=== PATIENT | female | born 1965 | race Caucasian/White ===

== ENCOUNTER 2018-03-06 09:19 | Inpatient (IN) | payer OTHER ==
[~2018-03-06] VITALS: Ht 154.9 cm; Wt 81.9 kg
[2018-03-06] MEDS ORDERED: HYDROmorphone 2 MG/ML, 1ML ONE ×2 (09:57→11:37)
[2018-03-06] MEDS ORDERED: METOCLOPRAMIDE 5 MG/ML, 2ML ONE (09:57)
[2018-03-06] MEDS ORDERED: DICYCLOMINE 10 MG/ML, 2ML ONE (09:58)
[2018-03-06] MEDS ORDERED: SODIUM CHLORIDE 0.9% 1,000ML IVBOLUS ONE (10:00)
[2018-03-06] MEDS ORDERED: DICYCLOMINE 10 MG/ML, 2ML IM ONE (10:00)
[2018-03-06] MEDS ORDERED: METOCLOPRAMIDE 5 MG/ML, 2ML IVPush ONE (10:00)
[2018-03-06] MEDS: HYDROmorphone 2 MG/ML, 1ML IVPush PRN ×5 (10:02→22:05)
[2018-03-06 10:23] LABS: ALANINE AMINOTRANSFERASE 33 U/L (12-78); ALBUMIN 4.2 g/dL (3.4-5.0); ANION GAP 15 mmol/L (5-15); CALCIUM 9.2 mg/dL (8.5-10.1); CHLORIDE 94 mmol/L (98-107); CREATININE 0.94 mg/dL (0.55-1.02)
[2018-03-06 10:25] LABS: ALKALINE PHOSPHATASE 165 U/L (45-117); BILIRUBIN,TOTAL 1.5 mg/dL (0.2-1.0); TOTAL PROTEIN 8.3 g/dL (6.4-8.2)
[2018-03-06 10:35] LABS: BASOPHILS # (AUTO) 0.05 x10^3/uL (0-0.1); BASOPHILS % (AUTO) 1 % (0-1); EOSINOPHILS # (AUTO) 0.03 x10^3/uL (0-0.4); EOSINOPHILS % (AUTO) 0 % (1-7); LYMPHOCYTES # (AUTO) 1.45 x10^3/uL (1-3.4); LYMPHOCYTES % (AUTO) 13 % (22-44); MD SCAN; MEAN CORPUSCULAR HEMOGLOBIN 32.4 pg (27.0-34.8); MEAN CORPUSCULAR VOLUME 92.5 fL (80-100); MEAN PLATELET VOLUME 7.8 fL (7.4-10.4); MONOCYTES # (AUTO) 0.48 x10^3/uL (0.2-0.8); MONOCYTES % (AUTO) 4 % (2-9); NEUTROPHILS # (AUTO) 9.08 x10^3/uL (1.8-6.8); NEUTROPHILS % (AUTO) 82 % (42-75); PLATELET COUNT 163 x10^3/uL (130-400); RED BLOOD COUNT 5.46 x10^6/uL (3.82-5.3); RED CELL DISTRIBUTION WIDTH 12.4 % (9.6-15.2)
[2018-03-06] MEDS ORDERED: ENALAPRILAT 1.25 MG/ML, 2ML IV ONE (11:00)
[2018-03-06] MEDS ORDERED: ENALAPRILAT 1.25 MG/ML, 2ML ONE (11:06)
[2018-03-06] MEDS ORDERED: hydrALAzine 20 MG/ML, 1ML ONE ×2 (11:45→12:41)
[2018-03-06] MEDS ORDERED: hydrALAzine 20 MG/ML, 1ML IV ONE ×2 (12:00→12:30)
[2018-03-06] MEDS ORDERED: POTASSIUM CHLORIDE 40 MEQ in SODIUM CHLORIDE 0.9% 500 ML IV ONE (12:00)
[2018-03-06] MEDS ORDERED: OMNIPAQUE 350 MG/ML, 100ML BOTTLE ONE ×2 (12:11)
[2018-03-06 13:17] LABS: LDL/HDL RATIO 1.3 (0.5-3.0)
[2018-03-06] MEDS ORDERED: MAGNESIUM SULFATE PMX 2GM/50ML 50 ML IV ONE (14:30)
[2018-03-06] MEDS ORDERED: ONDANSETRON ODT 4 MG ONE (15:36)
[2018-03-06] MEDS: POTASSIUM CHLORIDE 20 MEQ in LACTATED RINGERS 1,000 ML IV SCH ×2 (16:05→23:25)
[2018-03-06] MEDS: ONDANSETRON 2MG/ML, 2ML IVPush PRN (16:05)
[2018-03-06] MEDS: ENOXAPARIN 40 MG/0.4 ML SQ SCH (16:19)
[2018-03-06] MEDS: hydrALAzine 20 MG/ML, 1ML IVPush PRN ×2 (17:36→23:25)
[2018-03-06 17:38] VITALS: BP 174/114
[2018-03-06 19:41] VITALS: BP 194/130
[2018-03-06] MEDS: ENALAPRILAT 1.25 MG/ML, 2ML IVPush PRN ×2 (20:18→20:49)
[2018-03-06] MEDS ORDERED: LORazepam 0.5MG TABLET PO ONE (20:30)
[2018-03-06 20:44] VITALS: BP 196/135
[2018-03-06 21:32] VITALS: BP 193/130
[2018-03-06 23:16] VITALS: BP 191/102
[2018-03-07] VITALS (35 sets, daily range): BP systolic 127–196; BP diastolic 70–138
[2018-03-07] MEDS: ONDANSETRON 2MG/ML, 2ML IVPush PRN ×3 (00:08→22:20)
[2018-03-07] MEDS: HYDROmorphone 2 MG/ML, 1ML IVPush PRN ×7 (01:24→22:06)
[2018-03-07] MEDS: hydrALAzine 20 MG/ML, 1ML IVPush PRN ×2 (04:10→08:47)
[2018-03-07] MEDS: POTASSIUM CHLORIDE 20 MEQ in LACTATED RINGERS 1,000 ML IV SCH ×4 (04:34→21:26)
[2018-03-07 05:34] LABS: BASOPHILS # (AUTO) 0.02 x10^3/uL (0-0.1); BASOPHILS % (AUTO) 0 % (0-1); EOSINOPHILS # (AUTO) 0.05 x10^3/uL (0-0.4); EOSINOPHILS % (AUTO) 1 % (1-7); LYMPHOCYTES # (AUTO) 1.36 x10^3/uL (1-3.4); LYMPHOCYTES % (AUTO) 14 % (22-44); MD NO; MEAN CORPUSCULAR HEMOGLOBIN 32.8 pg (27.0-34.8); MEAN CORPUSCULAR HGB CONC 35.1 g/dL (32.4-35.8); MEAN CORPUSCULAR VOLUME 93.4 fL (80-100); MEAN PLATELET VOLUME 7.8 fL (7.4-10.4); MONOCYTES # (AUTO) 0.51 x10^3/uL (0.2-0.8); MONOCYTES % (AUTO) 5 % (2-9); NEUTROPHILS # (AUTO) 8.18 x10^3/uL (1.8-6.8); NEUTROPHILS % (AUTO) 81 % (42-75); PLATELET COUNT 155 x10^3/uL (130-400); RED BLOOD COUNT 4.73 x10^6/uL (3.82-5.3); RED CELL DISTRIBUTION WIDTH 12.9 % (9.6-15.2)
[2018-03-07 05:35] LABS: CALCIUM 8.4 mg/dL (8.5-10.1); CHLORIDE 100 mmol/L (98-107)
[2018-03-07 05:41] LABS: ALANINE AMINOTRANSFERASE 26 U/L (12-78); ALBUMIN 3.3 g/dL (3.4-5.0); ALKALINE PHOSPHATASE 152 U/L (45-117); ANION GAP 11 mmol/L (5-15); BILIRUBIN,TOTAL 0.8 mg/dL (0.2-1.0); CREATININE 0.61 mg/dL (0.55-1.02); TOTAL PROTEIN 6.7 g/dL (6.4-8.2)
[2018-03-07] MEDS: ENALAPRILAT 1.25 MG/ML, 2ML IVPush PRN ×3 (09:44→19:23)
[2018-03-07] MEDS ORDERED: KETOROLAC 30 MG/1 ML ONE (10:19)
[2018-03-07] MEDS: KETOROLAC 30 MG/1 ML IVPush PRN ×2 (10:23→16:26)
[2018-03-07] MEDS ORDERED: KETOROLAC 30 MG/1 ML IVPush SCH (10:30)
[2018-03-07 14:34] LABS: AMPHETAMINE SCREEN, URINE Negative (Negative); BARBITURATE SCREEN, URINE Negative (Negative); BENZODIAZEPINE SCREEN, URINE Negative (Negative); CANNABINOID SCREEN, URINE Negative (Negative); COCAINE SCREEN, URINE Negative (Negative); METHADONE SCREEN, URINE Negative (Negative)
[2018-03-07 14:35] LABS: OPIATE SCREEN, URINE Positive (Negative)
[2018-03-07] MEDS: ENOXAPARIN 40 MG/0.4 ML SQ SCH (16:14)
[2018-03-07] MEDS: hydrALAzine 20 MG/ML, 1ML IV PRN ×2 (16:26→22:06)
[2018-03-08] VITALS (11 sets, daily range): BP systolic 136–200; BP diastolic 64–124
[2018-03-08] MEDS: HYDROmorphone 2 MG/ML, 1ML IVPush PRN ×7 (00:41→21:08)
[2018-03-08] MEDS: POTASSIUM CHLORIDE 20 MEQ in LACTATED RINGERS 1,000 ML IV SCH ×5 (02:23→22:35)
[2018-03-08] MEDS: KETOROLAC 30 MG/1 ML IVPush PRN (02:24)
[2018-03-08] MEDS: ENALAPRILAT 1.25 MG/ML, 2ML IVPush PRN (02:24)
[2018-03-08 04:18] LABS: CLOSTRIDIUM DIFFICILE ANTIGEN POSITIVE; CLOSTRIDIUM DIFFICILE TOXIN NEGATIVE (Negative)
[2018-03-08] MEDS: hydrALAzine 20 MG/ML, 1ML IV PRN ×4 (05:32→23:44)
[2018-03-08 06:17] LABS: BASOPHILS # (AUTO) 0.02 x10^3/uL (0-0.1); BASOPHILS % (AUTO) 0 % (0-1); EOSINOPHILS # (AUTO) 0.14 x10^3/uL (0-0.4); EOSINOPHILS % (AUTO) 2 % (1-7); LYMPHOCYTES % (AUTO) 17 % (22-44); MD NO; MEAN CORPUSCULAR HEMOGLOBIN 32.5 pg (27.0-34.8); MEAN CORPUSCULAR HGB CONC 34.5 g/dL (32.4-35.8); MEAN CORPUSCULAR VOLUME 94.3 fL (80-100); MEAN PLATELET VOLUME 7.7 fL (7.4-10.4); MONOCYTES # (AUTO) 0.37 x10^3/uL (0.2-0.8); MONOCYTES % (AUTO) 6 % (2-9); NEUTROPHILS # (AUTO) 4.42 x10^3/uL (1.8-6.8); NEUTROPHILS % (AUTO) 74 % (42-75); PLATELET COUNT 116 x10^3/uL (130-400); RED BLOOD COUNT 4.17 x10^6/uL (3.82-5.3); RED CELL DISTRIBUTION WIDTH 12.8 % (9.6-15.2)
[2018-03-08 06:19] LABS: CHLORIDE 106 mmol/L (98-107)
[2018-03-08 06:28] LABS: ALANINE AMINOTRANSFERASE 24 U/L (12-78); ALBUMIN 2.8 g/dL (3.4-5.0); ALKALINE PHOSPHATASE 151 U/L (45-117); ANION GAP 7 mmol/L (5-15); BILIRUBIN,TOTAL 0.6 mg/dL (0.2-1.0); CALCIUM 8.2 mg/dL (8.5-10.1); TOTAL PROTEIN 5.9 g/dL (6.4-8.2)
[2018-03-08] MEDS ORDERED: LORazepam 2 MG/ML, 1ML ONE (11:08)
[2018-03-08] MEDS ORDERED: LORazepam 2 MG/ML, 1ML IVPush PRN (11:30)
[2018-03-08] MEDS: ENOXAPARIN 40 MG/0.4 ML SQ SCH (17:06)
[2018-03-08] MEDS ORDERED: ONDANSETRON ODT 4 MG PO PRN (22:00)
[2018-03-09] VITALS (14 sets, daily range): BP systolic 163–215; BP diastolic 84–139
[2018-03-09] MEDS ORDERED: DEXTROSE 5% 1,000 ML IV SCH (01:00)
[2018-03-09] MEDS: ENALAPRILAT 1.25 MG/ML, 2ML IVPush PRN ×4 (03:20→22:42)
[2018-03-09] MEDS: POTASSIUM CHLORIDE 20 MEQ in LACTATED RINGERS 1,000 ML IV SCH ×4 (03:23→19:14)
[2018-03-09] MEDS: HYDROmorphone 2 MG/ML, 1ML IVPush PRN ×3 (03:41→09:06)
[2018-03-09 05:54] LABS: BASOPHILS # (AUTO) 0.01 x10^3/uL (0-0.1); BASOPHILS % (AUTO) 0 % (0-1); EOSINOPHILS # (AUTO) 0.23 x10^3/uL (0-0.4); EOSINOPHILS % (AUTO) 3 % (1-7); LYMPHOCYTES # (AUTO) 1.09 x10^3/uL (1-3.4); LYMPHOCYTES % (AUTO) 16 % (22-44); MD NO; MEAN CORPUSCULAR HEMOGLOBIN 33.2 pg (27.0-34.8); MEAN CORPUSCULAR HGB CONC 35.2 g/dL (32.4-35.8); MEAN CORPUSCULAR VOLUME 94.4 fL (80-100); MEAN PLATELET VOLUME 7.8 fL (7.4-10.4); MONOCYTES % (AUTO) 7 % (2-9); NEUTROPHILS # (AUTO) 4.89 x10^3/uL (1.8-6.8); NEUTROPHILS % (AUTO) 73 % (42-75); PLATELET COUNT 134 x10^3/uL (130-400); RED BLOOD COUNT 4.19 x10^6/uL (3.82-5.3); RED CELL DISTRIBUTION WIDTH 12.9 % (9.6-15.2)
[2018-03-09 06:02] LABS: CHLORIDE 97 mmol/L (98-107)
[2018-03-09 06:15] LABS: ALANINE AMINOTRANSFERASE 30 U/L (12-78); ALKALINE PHOSPHATASE 180 U/L (45-117); ANION GAP 11 mmol/L (5-15); BILIRUBIN,TOTAL 1.2 mg/dL (0.2-1.0); CALCIUM 8.7 mg/dL (8.5-10.1); CREATININE 0.54 mg/dL (0.55-1.02); TOTAL PROTEIN 6.4 g/dL (6.4-8.2)
[2018-03-09] MEDS: hydrALAzine 20 MG/ML, 1ML IV PRN ×2 (08:17→21:09)
[2018-03-09] MEDS: KETOROLAC 30 MG/1 ML IVPush PRN ×2 (11:59→22:19)
[2018-03-09] MEDS ORDERED: MAALOX/HYOSCYAMINE/LIDOCAINE 45 ML BTL PO ONE (12:00)
[2018-03-09] MEDS ORDERED: hydrALAzine 20 MG/ML, 1ML IV SCH (13:30)
[2018-03-09] MEDS ORDERED: LISINOPRIL 20 MG TABLET PO ONE (15:00)
[2018-03-09] MEDS: SUCRALFATE 1 GM/10 ML UDC PO SCH ×2 (17:10→19:57)
[2018-03-09] MEDS: PANTOPROZOLE 40MG TABLET PO SCH (17:10)
[2018-03-09] MEDS: ENOXAPARIN 40 MG/0.4 ML SQ SCH (17:11)
[2018-03-09] MEDS: AMLODIPINE 5 MG TABLET PO SCH (19:57)
[2018-03-10] VITALS (9 sets, daily range): BP systolic 153–204; BP diastolic 86–120
[2018-03-10] MEDS: DIAZEPAM 5 MG/ML, 2ML IV PRN ×2 (00:20→21:16)
[2018-03-10] MEDS: hydrALAzine 20 MG/ML, 1ML IV PRN ×3 (01:17→15:24)
[2018-03-10] MEDS: HYDROmorphone 2 MG/ML, 1ML IVPush PRN ×2 (02:06→07:59)
[2018-03-10] MEDS ORDERED: POTASSIUM CHLORIDE 20 MEQ in LACTATED RINGERS 1,000 ML IV SCH ×2 (04:00→12:53)
[2018-03-10 05:36] LABS: BASOPHILS # (AUTO) 0.01 x10^3/uL (0-0.1); BASOPHILS % (AUTO) 0 % (0-1); EOSINOPHILS % (AUTO) 2 % (1-7); LYMPHOCYTES # (AUTO) 0.81 x10^3/uL (1-3.4); LYMPHOCYTES % (AUTO) 14 % (22-44); MD NO; MEAN CORPUSCULAR HEMOGLOBIN 32.6 pg (27.0-34.8); MEAN CORPUSCULAR HGB CONC 34.9 g/dL (32.4-35.8); MEAN CORPUSCULAR VOLUME 93.4 fL (80-100); MEAN PLATELET VOLUME 7.5 fL (7.4-10.4); MONOCYTES # (AUTO) 0.33 x10^3/uL (0.2-0.8); MONOCYTES % (AUTO) 6 % (2-9); NEUTROPHILS # (AUTO) 4.68 x10^3/uL (1.8-6.8); NEUTROPHILS % (AUTO) 79 % (42-75); PLATELET COUNT 159 x10^3/uL (130-400); RED BLOOD COUNT 4.55 x10^6/uL (3.82-5.3); RED CELL DISTRIBUTION WIDTH 12.3 % (9.6-15.2)
[2018-03-10 05:48] LABS: ANION GAP 11 mmol/L (5-15); CALCIUM 8.7 mg/dL (8.5-10.1); CHLORIDE 98 mmol/L (98-107)
[2018-03-10 05:50] LABS: CREATININE 0.52 mg/dL (0.55-1.02)
[2018-03-10] MEDS: SUCRALFATE 1 GM/10 ML UDC PO SCH ×4 (07:59→20:36)
[2018-03-10] MEDS: PANTOPROZOLE 40MG TABLET PO SCH (07:59)
[2018-03-10] MEDS: AMLODIPINE 5 MG TABLET PO SCH ×2 (07:59→20:36)
[2018-03-10] MEDS: LISINOPRIL 20 MG TABLET PO SCH ×2 (11:22→20:36)
[2018-03-10] MEDS: KETOROLAC 30 MG/1 ML IVPush PRN ×2 (11:47→18:01)
[2018-03-10] MEDS: ENALAPRILAT 1.25 MG/ML, 2ML IVPush PRN (11:47)
[2018-03-10] MEDS ORDERED: MAALOX/HYOSCYAMINE/LIDOCAINE 45 ML BTL PO ONE (13:30)
[2018-03-10] MEDS ORDERED: FUROSEMIDE 20 MG/2 ML ONE (15:16)
[2018-03-10] MEDS ORDERED: FUROSEMIDE 20 MG/2 ML IV ONE (16:00)
[2018-03-10] MEDS: ENOXAPARIN 40 MG/0.4 ML SQ SCH (17:59)
[2018-03-11] VITALS (9 sets, daily range): BP systolic 132–183; BP diastolic 84–121
[2018-03-11] MEDS: KETOROLAC 30 MG/1 ML IVPush PRN ×4 (00:10→19:07)
[2018-03-11] MEDS: hydrALAzine 20 MG/ML, 1ML IV PRN ×2 (00:53→11:23)
[2018-03-11] MEDS ORDERED: HYDROmorphone 2 MG/ML, 1ML IVPush ONE (02:30)
[2018-03-11 05:23] LABS: BASOPHILS # (AUTO) 0.01 x10^3/uL (0-0.1); BASOPHILS % (AUTO) 0 % (0-1); EOSINOPHILS # (AUTO) 0.15 x10^3/uL (0-0.4); EOSINOPHILS % (AUTO) 3 % (1-7); LYMPHOCYTES # (AUTO) 1.32 x10^3/uL (1-3.4); LYMPHOCYTES % (AUTO) 28 % (22-44); MD NO; MEAN CORPUSCULAR HEMOGLOBIN 32.5 pg (27.0-34.8); MEAN CORPUSCULAR HGB CONC 34.7 g/dL (32.4-35.8); MEAN CORPUSCULAR VOLUME 93.6 fL (80-100); MEAN PLATELET VOLUME 7.6 fL (7.4-10.4); MONOCYTES # (AUTO) 0.48 x10^3/uL (0.2-0.8); MONOCYTES % (AUTO) 10 % (2-9); NEUTROPHILS # (AUTO) 2.84 x10^3/uL (1.8-6.8); NEUTROPHILS % (AUTO) 59 % (42-75); PLATELET COUNT 173 x10^3/uL (130-400); RED BLOOD COUNT 4.44 x10^6/uL (3.82-5.3); RED CELL DISTRIBUTION WIDTH 12.8 % (9.6-15.2)
[2018-03-11 05:29] LABS: ALBUMIN 3.2 g/dL (3.4-5.0); ANION GAP 8 mmol/L (5-15); CALCIUM 8.5 mg/dL (8.5-10.1); CHLORIDE 98 mmol/L (98-107)
[2018-03-11 05:32] LABS: ALANINE AMINOTRANSFERASE 42 U/L (12-78); ALKALINE PHOSPHATASE 137 U/L (45-117); BILIRUBIN,TOTAL 0.7 mg/dL (0.2-1.0); C-REACTIVE PROTEIN, QUANT 0.77 mg/dL (0.02-0.49); CREATININE 0.63 mg/dL (0.55-1.02); TOTAL PROTEIN 6.5 g/dL (6.4-8.2)
[2018-03-11] MEDS: SUCRALFATE 1 GM/10 ML UDC PO SCH ×4 (08:07→20:22)
[2018-03-11] MEDS: AMLODIPINE 5 MG TABLET PO SCH ×2 (08:08→20:22)
[2018-03-11] MEDS: LISINOPRIL 20 MG TABLET PO SCH ×2 (08:08→20:22)
[2018-03-11] MEDS: PANTOPROZOLE 40MG TABLET PO SCH (08:08)
[2018-03-11] MEDS ORDERED: FUROSEMIDE 20 MG/2 ML IV ONE (11:30)
[2018-03-11] MEDS ORDERED: POTASSIUM CHLORIDE 20 MEQ TAB.ER.PRT PO ONE (11:30)
[2018-03-11] MEDS: ENOXAPARIN 40 MG/0.4 ML SQ SCH (16:11)
[2018-03-12] VITALS (8 sets, daily range): BP systolic 138–173; BP diastolic 82–124
[2018-03-12] MEDS: ENALAPRILAT 1.25 MG/ML, 2ML IVPush PRN ×2 (00:45→01:12)
[2018-03-12] MEDS: KETOROLAC 30 MG/1 ML IVPush PRN ×2 (01:11→08:19)
[2018-03-12 06:02] LABS: ANION GAP 9 mmol/L (5-15); CALCIUM 8.3 mg/dL (8.5-10.1); CHLORIDE 103 mmol/L (98-107); CREATININE 0.83 mg/dL (0.55-1.02)
[2018-03-12] MEDS ORDERED: hydrALAzine 20 MG/ML, 1ML IV PRN (07:30)
[2018-03-12] MEDS: PANTOPROZOLE 40MG TABLET PO SCH (07:30)
[2018-03-12] MEDS: SUCRALFATE 1 GM/10 ML UDC PO SCH ×4 (08:15→20:38)
[2018-03-12] MEDS: LISINOPRIL 20 MG TABLET PO SCH ×2 (08:16→20:38)
[2018-03-12] MEDS: AMLODIPINE 5 MG TABLET PO SCH ×2 (08:16→20:38)
[2018-03-12] MEDS ORDERED: IBUPROFEN 200 MG TABLET PO PRN (14:00)
[2018-03-12] MEDS: ENOXAPARIN 40 MG/0.4 ML SQ SCH (17:51)
[2018-03-13 02:45] VITALS: BP 132/85
[2018-03-13 07:13] VITALS: BP 150/87
[2018-03-13] MEDS: PANTOPROZOLE 40MG TABLET PO SCH (07:48)
[2018-03-13] MEDS: SUCRALFATE 1 GM/10 ML UDC PO SCH ×3 (07:48→16:00)
[2018-03-13] MEDS: LISINOPRIL 20 MG TABLET PO SCH (09:46)
[2018-03-13] MEDS: AMLODIPINE 5 MG TABLET PO SCH (09:46)
[2018-03-13] MEDS ORDERED: CLON0.1T12 PO (11:08)
[2018-03-13] MEDS ORDERED: SUCR1ORA5 PO (11:08)
[2018-03-13] MEDS ORDERED: LISI-170 PO (11:08)
[2018-03-13] MEDS ORDERED: AMLO5TAB7 PO (11:08)
[2018-03-13] MEDS ORDERED: PANT40TA5 PO (11:08)
[2018-03-13] MEDS ORDERED: HYDR-3343 PO (11:08)
[2018-03-13 12:12] VITALS: BP 122/72
[2018-03-13] MEDS: ENOXAPARIN 40 MG/0.4 ML SQ SCH (16:00)
== END 2018-03-13 17:31 | disposition home or self-care (01) | DRG 640 ==
LOC: ED 10:15 → EDIP 12:26 → 3NE 14:08 → 5SO 23:14 → 4WST 03-11 09:06
PROVIDERS: ADMIT Internal Medicine; ATTEND Internal Medicine
DX: E87.1 Hypo-osmolality and hyponatremia (principal); K85.90 Acute pancreatitis without necrosis or infection, unspecified; I16.0 Hypertensive urgency; D75.1 Secondary polycythemia; E66.9 Obesity, unspecified; E86.9 Volume depletion, unspecified; E87.6 Hypokalemia; I11.9 Hypertensive heart disease without heart failure; K21.9 Gastro-esophageal reflux disease without esophagitis; K43.9 Ventral hernia without obstruction or gangrene; K57.30 Diverticulosis of large intestine without perforation or abscess without bleeding; N83.202 Unspecified ovarian cyst, left side; Z82.49 Family history of ischemic heart disease and other diseases of the circulatory system; Z87.891 Personal history of nicotine dependence; Z87.892 Personal history of anaphylaxis; Z90.49 Acquired absence of other specified parts of digestive tract; Z68.34 Body mass index [BMI] 34.0-34.9, adult
CPT/HCPCS: 36415; 71045; 74177; 74181; 80048; 80053; 80061; 80307; 83605; 83690; 83735; 85025; 86140; 87324; 87493; 93306; 93975; 96372; 96374; 96375; 96376; 99285; G0378; J1170; J1650; J1885; J2405; J3360; J3480; J7070; Q0162; Q9967; J0360; J0500; J1940; J2060; J2765; J3475; J7030; J7040; J7120

== ENCOUNTER → 2018-09-06 | Outpatient (CLI) | payer OTHER ==
[~2018-09-06] MED LIST: AMLO-150 PO; CLON0.1T12 PO; HYDR-3343 PO; LISI-170 PO; PANT40TA5 PO; SUCR1ORA5 PO
[2018-09-06 12:39] LABS: BASOPHILS # (AUTO) 0.01 x10^3/uL (0-0.1); BASOPHILS % (AUTO) 0 % (0-1); EOSINOPHILS # (AUTO) 0.06 x10^3/uL (0-0.4); EOSINOPHILS % (AUTO) 1 % (1-7); LYMPHOCYTES # (AUTO) 0.85 x10^3/uL (1-3.4); LYMPHOCYTES % (AUTO) 16 % (22-44); MD NO; MEAN CORPUSCULAR HEMOGLOBIN 33.4 pg (27.0-34.8); MEAN CORPUSCULAR HGB CONC 34.9 g/dL (32.4-35.8); MEAN CORPUSCULAR VOLUME 95.9 fL (80-100); MEAN PLATELET VOLUME 7.6 fL (7.4-10.4); MONOCYTES # (AUTO) 0.35 x10^3/uL (0.2-0.8); MONOCYTES % (AUTO) 7 % (2-9); NEUTROPHILS # (AUTO) 4.02 x10^3/uL (1.8-6.8); NEUTROPHILS % (AUTO) 76 % (42-75); PLATELET COUNT 183 x10^3/uL (130-400); RED BLOOD COUNT 4.33 x10^6/uL (3.82-5.3); RED CELL DISTRIBUTION WIDTH 13.4 % (9.6-15.2)
[2018-09-06 12:59] LABS: HEMOGLOBIN A1C 4.9 % (4.2-6.3)
[2018-09-06 13:16] LABS: ALBUMIN 3.8 g/dL (3.4-5.0); ANION GAP 9 mmol/L (5-15); CALCIUM 8.9 mg/dL (8.5-10.1); CHLORIDE 103 mmol/L (98-107)
[2018-09-06 13:27] LABS: ALANINE AMINOTRANSFERASE 54 U/L (12-78); ALKALINE PHOSPHATASE 185 U/L (45-117); BILIRUBIN,TOTAL 1.1 mg/dL (0.2-1.0); CHOL/HDL RATIO 2.9; CHOLESTEROL, TOTAL 191 mg/dL (140-239); CREATININE 0.63 mg/dL (0.55-1.02); HDL CHOL % 34 % (28-40); HDL CHOLESTEROL (DIRECT) 65 mg/dL (40-60); LDL CHOLESTEROL,CALCULATED 97 mg/dL (54-169); LDL/HDL RATIO 1.5 (0.5-3.0); T4 (THYROXINE) 11.9 mcg/dL (4.8-13.9); TOTAL PROTEIN 7.1 g/dL (6.4-8.2); TRIGLYCERIDES 144 mg/dL (50-200); VLDL CHOLESTEROL 29 mg/dL (0-25)
== END | disposition home or self-care (01) ==
LOC: CFH 10:31
PROVIDERS: ATTEND Nurse Practitioner Family
DX: Z13.6 Encounter for screening for cardiovascular disorders (principal); I10 Essential (primary) hypertension; Z87.891 Personal history of nicotine dependence
CPT/HCPCS: 36415; 80053; 80061; 83036; 84436; 84443; 84481; 85025

== ENCOUNTER 2018-10-29 04:03 | Inpatient (IN) | payer OTHER ==
[~2018-10-29] VITALS: Ht 154.9 cm; Wt 77.2 kg
--- NOTE | 2018-10-29 04:23 | NUR ---
FIRST CONTACT WITH PT. PT STATES THAT SHE'S FELT UNWELL SINCE TUESDAY. PT HAVING ABDOMINAL PAIN THAT SHE SAYS RANGES FROM EPIGASTRIC TO LOWER ABDOMEN, AND WHICH RADIATES UP HER LEFT SIDE UNDER HER BREAST. PT WITH HISTORY OF PANCREATITIS AND SAYS SHE FEELS LIKE IT'S THAT AGAIN. BP/SPO2 MONITORS IN PLACE. CALL LIGHT WITHIN REACH. PT'S AOX4. RESPS EVEN AND UNLABORED.
--- NOTE | 2018-10-29 04:34 | NUR ---
PT PROVIDED URINE CUP. PT AMB TO BR WITH STEADY GAIT.
[2018-10-29 04:54] LABS: CULTURE INDICATED? NO; MICROSCOPIC AUTO
[2018-10-29 04:54] LABS: BASOPHILS # (AUTO) 0.01 x10^3/uL (0-0.1); BASOPHILS % (AUTO) 0 % (0-1); EOSINOPHILS # (AUTO) 0.08 x10^3/uL (0-0.4); EOSINOPHILS % (AUTO) 1 % (1-7); LYMPHOCYTES # (AUTO) 1.11 x10^3/uL (1-3.4); LYMPHOCYTES % (AUTO) 15 % (22-44); MD NO; MEAN CORPUSCULAR HEMOGLOBIN 33.2 pg (27.0-34.8); MEAN CORPUSCULAR HGB CONC 34.4 g/dL (32.4-35.8); MEAN CORPUSCULAR VOLUME 96.6 fL (80-100); MEAN PLATELET VOLUME 7.8 fL (7.4-10.4); MONOCYTES # (AUTO) 0.42 x10^3/uL (0.2-0.8); MONOCYTES % (AUTO) 6 % (2-9); NEUTROPHILS % (AUTO) 78 % (42-75); PLATELET COUNT 207 x10^3/uL (130-400); RED CELL DISTRIBUTION WIDTH 12.8 % (9.6-15.2)
[2018-10-29] MEDS ORDERED: MAALOX/HYOSCYAMINE/LIDOCAINE 45 ML BTL PO ONE (05:00)
[2018-10-29] MEDS ORDERED: MAALOX/HYOSCYAMINE/LIDOCAINE 45 ML BTL ONE (05:05)
[2018-10-29 05:07] LABS: ALANINE AMINOTRANSFERASE 47 U/L (12-78); ALBUMIN 4.4 g/dL (3.4-5.0); ANION GAP 10 mmol/L (5-15); CALCIUM 9.2 mg/dL (8.5-10.1); CHLORIDE 99 mmol/L (98-107); CREATININE 1.35 mg/dL (0.55-1.02)
[2018-10-29 05:09] LABS: ALKALINE PHOSPHATASE 180 U/L (45-117); BILIRUBIN,TOTAL 1.3 mg/dL (0.2-1.0); TOTAL PROTEIN 8.5 g/dL (6.4-8.2)
--- NOTE | 2018-10-29 05:12 | NUR ---
PT MEDICATED PER EMAR. PT TOLERATED WELL.
[2018-10-29] MEDS ORDERED: SODIUM CHLORIDE 0.9% 1,000 ML IV ONE (05:39)
[2018-10-29] MEDS ORDERED: HYDROmorphone 2 MG/ML, 1ML ONE (05:49)
[2018-10-29] MEDS ORDERED: ONDANSETRON 2MG/ML, 2ML ONE (05:49)
[2018-10-29] MEDS ORDERED: SODIUM CHLORIDE FLUSH 10ML SYR IVF ONE (06:00)
[2018-10-29] MEDS ORDERED: ONDANSETRON 2MG/ML, 2ML IVPush ONE (06:00)
[2018-10-29] MEDS ORDERED: HYDROmorphone 2 MG/ML, 1ML IVPush PRN (06:00)
--- NOTE | 2018-10-29 06:41 | NUR ---
PT IN CT NOW.
[2018-10-29] MEDS ORDERED: OMNIPAQUE 350 MG/ML, 100ML BOTTLE ONE (06:47)
--- NOTE | 2018-10-29 06:47 | NUR ---
PT BACK TO ROOM FROM CT.
--- NOTE | 2018-10-29 06:55 | NUR ---
REPORT GIVEN TO CARLOS BENSON
--- NOTE | 2018-10-29 07:18 | NUR ---
PT RESTING ON [employer]. ALL CONCERNS ADRESSED. PT STATES PAIN IS WELL CONTROLLED AT THIS TIME. CALL LIGHT IN REACH.
--- NOTE | 2018-10-29 08:21 | NUR ---
PT AMBULATORY TO BATHROOM WITH STEADY GAIT.
[2018-10-29] MEDS ORDERED: SODIUM CHLORIDE FLUSH 10ML SYR IVF PRN (08:30)
--- NOTE | 2018-10-29 09:25 | NUR ---
REPORT TO OLLIE GARCIA.
[2018-10-29 09:55] VITALS: BP 170/99
[2018-10-29] MEDS ORDERED: ENALAPRILAT 1.25 MG/ML, 2ML IV PRN (11:30)
[2018-10-29] MEDS ORDERED: morphine SULFATE 10 MG/ML, 1ML IVPush PRN (11:30)
[2018-10-29] MEDS: PANTOPRAZOLE 40 MG IV IVPush SCH (11:42)
[2018-10-29] MEDS ORDERED: HYDROmorphone 1 MG/ML, 1ML INJ IV PRN (12:00)
[2018-10-29] MEDS: ENOXAPARIN 40 MG/0.4 ML SQ SCH (12:00)
[2018-10-29 12:14] VITALS: BP 137/89
[2018-10-29] MEDS: SODIUM CHLORIDE 0.45% 1,000 ML IV SCH ×2 (12:41→19:13)
[2018-10-29] MEDS: ONDANSETRON 2MG/ML, 2ML IVPush PRN ×2 (12:42→19:13)
[2018-10-29 15:33] VITALS: BP 173/98
[2018-10-29] MEDS: hydrALAzine 20 MG/ML, 1ML IV SCH ×2 (15:35→21:59)
[2018-10-29] MEDS: HYDROmorphone 2 MG/ML, 1ML IV PRN ×2 (19:13→22:23)
[2018-10-29 20:14] VITALS: BP 147/94
[2018-10-30 01:13] VITALS: BP 151/91
[2018-10-30] MEDS: HYDROmorphone 2 MG/ML, 1ML IV PRN ×5 (01:32→21:31)
[2018-10-30] MEDS: PROMETHAZINE 25 MG/ML, 1ML IM PRN ×2 (01:36→08:09)
[2018-10-30] MEDS: SODIUM CHLORIDE 0.45% 1,000 ML IV SCH ×2 (01:42→08:18)
[2018-10-30 04:16] VITALS: BP 170/101
[2018-10-30] MEDS: hydrALAzine 20 MG/ML, 1ML IV SCH ×2 (04:19→08:04)
[2018-10-30] MEDS: ONDANSETRON 2MG/ML, 2ML IVPush PRN (05:03)
[2018-10-30 05:26] LABS: ALBUMIN 3.7 g/dL (3.4-5.0); ANION GAP 10 mmol/L (5-15); CALCIUM 8.8 mg/dL (8.5-10.1); CHLORIDE 100 mmol/L (98-107)
[2018-10-30 05:31] LABS: ALANINE AMINOTRANSFERASE 54 U/L (12-78); ALKALINE PHOSPHATASE 250 U/L (45-117); BILIRUBIN,TOTAL 1.2 mg/dL (0.2-1.0); CREATININE 0.86 mg/dL (0.55-1.02)
[2018-10-30] MEDS: PANTOPRAZOLE 40 MG IV IVPush SCH (08:04)
[2018-10-30] MEDS ORDERED: MAGNESIUM SULFATE PMX 2GM/50ML 50 ML IV ONE (10:00)
[2018-10-30] MEDS: SODIUM CHLORIDE 0.9% 1,000 ML IV SCH ×2 (10:38→21:13)
[2018-10-30] MEDS: OXYcodone IR 5MG TABLET PO PRN ×2 (10:59→18:17)
[2018-10-30 11:01] VITALS: BP 143/87
[2018-10-30] MEDS: ENOXAPARIN 40 MG/0.4 ML SQ SCH (12:00)
[2018-10-30 15:24] VITALS: BP 125/78
[2018-10-30 19:41] VITALS: BP 163/96
[2018-10-30] MEDS: AMLODIPINE 5 MG TABLET PO SCH (21:13)
[2018-10-30] MEDS: LISINOPRIL 20 MG TABLET PO SCH (21:13)
[2018-10-31] MEDS: HYDROmorphone 2 MG/ML, 1ML IV PRN ×7 (00:39→20:59)
[2018-10-31 02:09] VITALS: BP 120/77
[2018-10-31] MEDS: SODIUM CHLORIDE 0.9% 1,000 ML IV SCH ×3 (03:49→20:03)
[2018-10-31 05:42] LABS: ALBUMIN 3.6 g/dL (3.4-5.0); ANION GAP 7 mmol/L (5-15); CALCIUM 8.4 mg/dL (8.5-10.1); CHLORIDE 101 mmol/L (98-107)
[2018-10-31 05:46] LABS: ALANINE AMINOTRANSFERASE 63 U/L (12-78); ALKALINE PHOSPHATASE 215 U/L (45-117); CREATININE 0.82 mg/dL (0.55-1.02); TOTAL PROTEIN 7.1 g/dL (6.4-8.2)
[2018-10-31 07:30] VITALS: BP 185/108
[2018-10-31] MEDS: PANTOPRAZOLE 40 MG IV IVPush SCH (07:35)
[2018-10-31] MEDS: LISINOPRIL 20 MG TABLET PO SCH ×2 (07:35→20:03)
[2018-10-31] MEDS: AMLODIPINE 5 MG TABLET PO SCH ×2 (07:35→20:03)
[2018-10-31] MEDS: ENOXAPARIN 40 MG/0.4 ML SQ SCH ×2 (12:00→14:19)
[2018-10-31 13:30] VITALS: BP 149/82
[2018-10-31] MEDS: ACETAMINOPHEN 325 MG TABLET PO PRN (17:45)
[2018-10-31 21:17] VITALS: BP 169/83
[2018-10-31 23:59] VITALS: BP 156/85
[2018-11-01] MEDS: HYDROmorphone 2 MG/ML, 1ML IV PRN ×3 (00:11→06:16)
[2018-11-01] MEDS: ACETAMINOPHEN 325 MG TABLET PO PRN ×3 (03:11→16:36)
[2018-11-01] MEDS: SODIUM CHLORIDE 0.9% 1,000 ML IV SCH (03:46)
[2018-11-01 05:35] LABS: ANION GAP 8 mmol/L (5-15); CHLORIDE 104 mmol/L (98-107)
[2018-11-01 05:38] LABS: CREATININE 0.64 mg/dL (0.55-1.02)
[2018-11-01 07:28] VITALS: BP 169/97
[2018-11-01] MEDS ORDERED: MAGNESIUM SULFATE PMX 2GM/50ML 50 ML IV ONE (09:00)
[2018-11-01] MEDS: AMLODIPINE 5 MG TABLET PO SCH ×2 (10:56→20:54)
[2018-11-01] MEDS: LISINOPRIL 20 MG TABLET PO SCH ×2 (10:57→20:55)
[2018-11-01] MEDS: OXYcodone IR 5MG TABLET PO PRN ×2 (11:19→16:36)
[2018-11-01] MEDS ORDERED: MAALOX/HYOSCYAMINE/LIDOCAINE 45 ML BTL PO ONE (11:30)
[2018-11-01 14:18] VITALS: BP 104/67
[2018-11-01 18:54] VITALS: BP 135/85
[2018-11-01] MEDS: CALCIUM CARBONATE 500 MG TAB.CHEW PO PRN (21:00)
[2018-11-02] MEDS: ACETAMINOPHEN 325 MG TABLET PO PRN ×2 (01:23→10:36)
[2018-11-02] MEDS: OXYcodone IR 5MG TABLET PO PRN (01:23)
[2018-11-02 01:57] VITALS: BP 129/83
[2018-11-02 07:56] VITALS: BP 137/82
[2018-11-02] MEDS: LISINOPRIL 20 MG TABLET PO SCH (10:37)
[2018-11-02] MEDS: CALCIUM CARBONATE 500 MG TAB.CHEW PO PRN (10:37)
[2018-11-02] MEDS: AMLODIPINE 5 MG TABLET PO SCH (10:37)
[2018-11-02] MEDS ORDERED: ACET325T14 PO (11:46)
[2018-11-02] MEDS ORDERED: MAG355OR15 PO (11:46)
[2018-11-02] MEDS: ENOXAPARIN 40 MG/0.4 ML SQ SCH (12:00)
== END 2018-11-02 13:20 | disposition home or self-care (01) | DRG 438 ==
LOC: ED 07:53 → EDIP 08:23 → 3NE 09:11 → DCLOUNGE 11-02 13:11
PROVIDERS: ADMIT Hospitalist; ATTEND Hospitalist
DX: K85.90 Acute pancreatitis without necrosis or infection, unspecified (principal); N17.0 Acute kidney failure with tubular necrosis; E87.1 Hypo-osmolality and hyponatremia; E66.9 Obesity, unspecified; Z68.32 Body mass index [BMI] 32.0-32.9, adult; E83.42 Hypomagnesemia; N83.202 Unspecified ovarian cyst, left side; I10 Essential (primary) hypertension; K43.9 Ventral hernia without obstruction or gangrene; Z88.6 Allergy status to analgesic agent; Z88.8 Allergy status to other drugs, medicaments and biological substances; Z82.49 Family history of ischemic heart disease and other diseases of the circulatory system; Z87.892 Personal history of anaphylaxis; Z88.5 Allergy status to narcotic agent; Z90.49 Acquired absence of other specified parts of digestive tract
CPT/HCPCS: 36415; 74177; 80048; 80053; 81001; 83690; 83735; 84100; 85025; 93005; 96374; G0378; J1170; J1650; J2405; J2550; Q9967; C9113; J0360; J3475; J7030